=== PATIENT | male | born 1960 | race Caucasian/White ===

== ENCOUNTER → 2017-04-19 | Outpatient (CLI) | payer BC, OTHER ==
[~2017-04-19] MED LIST: AMLO5TAB2 PO; CLX20 PO; LISI40TA PO; OMEP20CA59 PO
[2017-04-19 12:24] LABS: BASO % 0.6 %; BASO ABS # 0.03 K/uL (0-0.2); COMPLETE YES; EOS % 2.4 %; HEMATOCRIT 47.2 % (42-52); IG% 0.4 %; LYMPH % 23.2 %; LYMPH ABS # 1.15 K/uL (1.2-3.4); MEAN CELL VOLUME 93.8 fL (80-100); MEAN CORPUSCULAR HGB CONC 36.2 g/dl (32-36); MEAN PLATELET VOLUME 12.2 fL (7.4-10.4); MONO % 10.5 %; NEUT % 62.9 %; PLATELET COUNT 221 K/uL (130-400); RED BLOOD COUNT 5.03 M/uL (4.7-6.1); WHITE BLOOD COUNT 4.96 K/uL (4.8-10.8)
[2017-04-19 12:54] LABS: BLOOD UREA NITROGEN 12 mg/dl (7-18); BUN/CREATININE RATIO 9.4 (10-20); CALCIUM 9.2 mg/dl (8.5-10.1); CARBON DIOXIDE 28 mmol/L (21-32); CHLORIDE 101 mmol/L (98-107); CREATININE 1.24 mg/dl (0.60-1.40); GLUCOSE 110 mg/dl (70-99); POTASSIUM 4.4 mmol/L (3.5-5.1); SODIUM 134 mmol/L (136-145)
[2017-04-19 12:55] LABS: ALT/SGPT 75 U/L (12-78); AST/SGOT 32 U/L (15-37)
[2017-04-19 12:59] LABS: ALKALINE PHOSPHATASE 99 U/L (45-117); CHOLESTEROL 254 mg/dl (0-200); HDL CHOLESTEROL 42 mg/dl; LDL CHOLESTEROL CALCULATED 154 mg/dl; PROSTATE SPECIFIC ANTIGEN 0.979 ng/ml (0.000-4.000); TRIGLYCERIDES 290 mg/dl (0-150); VERY LOW DENSITY LIPOPROT CALC 58 mg/dl
== END | disposition home or self-care (01) ==
LOC: C.LABPBG 09:25
PROVIDERS: ATTEND Internal Medicine
DX: N50.3 Cyst of epididymis (principal)

== ENCOUNTER → 2017-07-06 | Outpatient (CLI) | payer BC ==
[2017-07-06 13:13] LABS: ALBUMIN 3.9 gm/dl (3.4-5.0); ALT/SGPT 82 U/L (12-78); BLOOD UREA NITROGEN 11 mg/dl (7-18); CALCIUM 8.9 mg/dl (8.5-10.1); CARBON DIOXIDE 29 mmol/L (21-32); CHOLESTEROL 154 mg/dl (0-200); CREATININE 1.05 mg/dl (0.60-1.40); GLUCOSE 99 mg/dl (70-99); POTASSIUM 4.2 mmol/L (3.5-5.1); SODIUM 136 mmol/L (136-145)
[2017-07-06 13:16] LABS: ALKALINE PHOSPHATASE 94 U/L (45-117); AST/SGOT 35 U/L (15-37); LDL CHOLESTEROL CALCULATED 93 mg/dl; TOTAL PROTEIN 7.5 gm/dl (6.4-8.2)
== END | disposition home or self-care (01) ==
LOC: C.LABPBG 08:17
PROVIDERS: ATTEND Internal Medicine
DX: Z00.00 Encounter for general adult medical examination without abnormal findings (principal); I10 Essential (primary) hypertension; E78.5 Hyperlipidemia, unspecified

== ENCOUNTER 2017-08-24 11:15 | Emergency (ER) | payer BC ==
[~2017-08-24] VITALS: Ht 167.6 cm; Wt 81.1 kg
[2017-08-24 11:17] VITALS: TEMP 36.7; Ht 167.6 cm; Wt 81.1 kg
[2017-08-24 11:27] VITALS: O2SAT 95
[2017-08-24] MEDS ORDERED: ATOR-22 PO (11:57)
[2017-08-24] MEDS ORDERED: METOPROLOL SUCC 50MG EXT REL TAB PO STA (12:18)
[2017-08-24 12:26] LABS: BASO % 0.2 %; BASO ABS # 0.01 K/uL (0-0.2); EOS % 1.3 %; EOS ABS # 0.08 K/uL (0-0.5); HEMATOCRIT 46.8 % (42-52); HEMOGLOBIN 17.1 g/dL (14.0-18.0); IG# 0.02 K/uL (0.00-0.02); LYMPH % 18.8 %; LYMPH ABS # 1.12 K/uL (1.2-3.4); MEAN CELL VOLUME 90.9 fL (80-100); MEAN CORPUSCULAR HEMOGLOBIN 33.2 pg (25-34); MEAN CORPUSCULAR HGB CONC 36.5 g/dl (32-36); MEAN PLATELET VOLUME 12.6 fL (7.4-10.4); MONO % 8.1 %; MONO ABS # 0.48 K/uL (0.11-0.59); NEUT % 71.3 %; NEUT ABS # 4.25 K/uL (1.4-6.5); PLATELET COUNT 195 K/uL (130-400); RED CELL DISTRIBUTION WIDTH CV 12.5 % (11.5-14.5); RED CELL DISTRIBUTION WIDTH SD 41.7 fL (36.4-46.3); WHITE BLOOD COUNT 5.96 K/uL (4.8-10.8)
--- NOTE | 2017-08-24 12:30 | DIAGNOSTIC IMAGING REPORT ---
CHEST ONE VIEW PORTABLE CLINICAL HISTORY: CHEST PAIN pain COMPARISON STUDY: No previous studies for comparison. FINDINGS: The bones soft tissues and hemidiaphragms are normal. The cardiomediastinal silhouette is normal. The lungs are clear. The pulmonary vasculature is normal. IMPRESSION: Negative chest. The above report was generated using voice recognition software. It may contain grammatical, syntax or spelling errors. Electronically signed by: Peterson Amador M.D. 08/24/2017 12:29 PM Dictated Date/Time: 08/24/2017 12:29 PM
[2017-08-24 12:33] LABS: PTT PATIENT 26.3 SECONDS (21.0-31.0)
[2017-08-24 12:34] LABS: BLOOD UREA NITROGEN 14 mg/dl (7-18); CALCIUM 9.5 mg/dl (8.5-10.1); CARBON DIOXIDE 28 mmol/L (21-32); CREATININE 1.19 mg/dl (0.60-1.40); GLUCOSE 100 mg/dl (70-99); POTASSIUM 3.9 mmol/L (3.5-5.1); SODIUM 135 mmol/L (136-145)
[2017-08-24] MEDS ORDERED: APIXABAN 2.5 MG TAB PO STA (13:25)
[2017-08-24] MEDS ORDERED: METOPROLOL SUCC 25MG EXT REL TAB PO STA (13:25)
[2017-08-24] MEDS ORDERED: APIX1TAB3 PO (13:33)
[2017-08-24] MEDS ORDERED: METO25TA3 PO (13:33)
--- NOTE | 2017-08-24 13:38 | EMERGENCY ROOM VISIT NOTE ---
History Report prepared by Raghu: Guillermo Villegas Under the Supervision of: Dr. Pedro Metcalf M.D. First contact with patient: 12:04 Chief Complaint: IRREGULAR HEARTBEAT Stated Complaint: AFIB Nursing Triage Summary: Patient states began feeling fluttering in chest on Wednesday. Went to [facility] [place] and they sent him here for new onset Afib. Patient denies fluttering feeling at this time. History of Present Illness The patient is a 57 year old white male with a past medical history of HTN, HLD who presents to the ED with a cc of intermittent heart palpitations beginning one week ago. He was seen by his PCP's office today and was referred to the ED for new onset A-fib. Nothing has improved his symptoms. Negative cough, fevers, chills, chest pain, fatigue, SOB. He denies significant caffeine usage. He denies recent drug of alcohol use. No blood thinners. Source of History: patient Onset: One week ago Quality: other (heart palpitations) Timing: intermittent Modifying Factors (Relieving): other (none) Associated Symptoms: No fevers, No chills, No chest pain, No SOB, No fatigue Review of Systems See HPI for pertinent positives and negatives. A total of ten systems were reviewed and were otherwise negative. Past Medical & Surgical Medical Problems: (1) HLD (hyperlipidemia) (2) HTN (hypertension) Family History No pertinent family history stated. Social History Smoking Status: Never Smoker Alcohol Use: none Drug Use: none Marital Status: Occupation Status: employed Current/Historical Medications Scheduled Amlodipine Besylate (Norvasc), 7.5 MG PO HS Apixaban (Eliquis), 5 MG PO BID Atorvastatin (Lipitor), 20 MG PO HS Citalopram (Celexa *), 20 MG PO QAM Lisinopril (Zestril), 40 MG PO QAM Metoprolol Succ (Toprol Xl) (Toprol-Xl), 50 MG PO DAILY Omeprazole (Prilosec), 20 MG PO QAM Allergies Coded Allergies: Penicillins (Verified Allergy, Severe, HIVES, 08/24/17) Physical Exam Vital Signs Date Time Temp Pulse Resp B/P (MAP) Pulse Ox O2 Delivery O2 Flow Rate FiO2 08/24/17 13:30 87 18 130/88 95 Room Air 08/24/17 13:00 89 18 139/99 96 Room Air 08/24/17 11:39 126 08/24/17 11:30 95 Room Air 08/24/17 11:27 95 Room Air 08/24/17 11:17 36.7 86 20 122/88 98 Room Air Physical Exam GENERAL: Awake, alert, well-appearing, NAD HENT: Normocephalic, atraumatic. EYES: Normal conjunctiva. Sclera non-icteric. NECK: Supple. No nuchal rigidity. FROM. RESPIRATORY: CTAB, no rhonchi, wheezing, crackles CARDIAC: RRR, no MRG ABDOMEN: Soft, NTND, BS+ MSK: No chest wall TTP, no LE edema NEURO: GCS 15, CN 2-12 intact, moves all 4s on command SKIN: No rash or jaundice noted. Medical Decision & Procedures ER Provider Diagnostic Interpretation: Radiology results as stated below per my review and radiologist interpretation: CHEST ONE VIEW PORTABLE FINDINGS: The bones soft tissues and hemidiaphragms are normal. The cardiomediastinal silhouette is normal. The lungs are clear. The pulmonary vasculature is normal. IMPRESSION: Negative chest. The above report was generated using voice recognition software. It may contain grammatical, syntax or spelling errors. Electronically signed by: Peterson Amador M.D. 08/24/2017 12:29 PM Laboratory Results 08/24/17 11:44 Red Blood Count 5.15, Mean Corpuscular Volume 90.9, Mean Corpuscular Hemoglobin 33.2, Mean Corpuscular Hemoglobin Concent 36.5, Mean Platelet Volume 12.6, Neutrophils (%) (Auto) 71.3, Lymphocytes (%) (Auto) 18.8, Monocytes (%) (Auto) 8.1, Eosinophils (%) (Auto) 1.3, Basophils (%) (Auto) 0.2, Neutrophils # (Auto) 4.25, Lymphocytes # (Auto) 1.12, Monocytes # (Auto) 0.48, Eosinophils # (Auto) 0.08, Basophils # (Auto) 0.01 08/24/17 11:44 Test 08/24/17 11:44 White Blood Count 5.96 K/uL (4.8-10.8) Red Blood Count 5.15 M/uL (4.7-6.1) Hemoglobin 17.1 g/dL (14.0-18.0) Hematocrit 46.8 % (42-52) Mean Corpuscular Volume 90.9 fL (80-100) Mean Corpuscular Hemoglobin 33.2 pg (25-34) Mean Corpuscular Hemoglobin Concent 36.5 g/dl (32-36) Platelet Count 195 K/uL (130-400) Mean Platelet Volume 12.6 fL (7.4-10.4) Neutrophils (%) (Auto) 71.3 % Lymphocytes (%) (Auto) 18.8 % Monocytes (%) (Auto) 8.1 % Eosinophils (%) (Auto) 1.3 % Basophils (%) (Auto) 0.2 % Neutrophils # (Auto) 4.25 K/uL (1.4-6.5) Lymphocytes # (Auto) 1.12 K/uL (1.2-3.4) Monocytes # (Auto) 0.48 K/uL (0.11-0.59) Eosinophils # (Auto) 0.08 K/uL (0-0.5) Basophils # (Auto) 0.01 K/uL (0-0.2) RDW Standard Deviation 41.7 fL (36.4-46.3) RDW Coefficient of Variation 12.5 % (11.5-14.5) Immature Granulocyte % (Auto) 0.3 % Immature Granulocyte # (Auto) 0.02 K/uL (0.00-0.02) Prothrombin Time 10.5 SECONDS (9.0-12.0) Prothromb Time International Ratio 1.0 (0.9-1.1) Activated Partial Thromboplast Time 26.3 SECONDS (21.0-31.0) Partial Thromboplastin Ratio 1.0 Anion Gap 5.0 mmol/L (3-11) Est Creatinine Clear Calc Drug Dose 70.1 ml/min Estimated GFR () 79.2 Estimated GFR (Non- 68.4 BUN/Creatinine Ratio 11.6 (10-20) Calcium Level 9.5 mg/dl (8.5-10.1) Magnesium Level 2.4 mg/dl (1.8-2.4) Troponin I < 0.015 ng/ml (0-0.045) Pro-B-Type Natriuretic Peptide 46 pg/ml (0-900) Thyroid Stimulating Hormone (TSH) 1.040 uIu/ml (0.300-4.500) Laboratory results reviewed by me Medications Administered Medications (Trade) Dose Ordered Sig/Gabriella Route Start Time Stop Time Status Last Admin Dose Admin Metoprolol Succinate (Toprol Xl Tab) 25 mg NOW STAT PO 08/24/17 12:18 08/24/17 12:19 DC 08/24/17 12:34 25 MG ECG Per My Interpretation Indication: palpitations Rate (beats per minute): 79 Rhythm: normal sinus Findings: other (Normal intervals. Normal axis. No ST elevations. No PVCs. ) Change: Repeat ECG shows Atrial Fibrillation with RVR, rate of 129 bpm. Normal QRS. No ST elevations seen. Second repeat ECG shows a normal sinus rhythm with a rate of 71 bpm. Normal axis. Normal intervals. No other STS changes or TWI. ED Course 1210: The patient was evaluated in room B8. A complete history and physical exam was performed. 1340: I reevaluated the patient. Discussed results and discharge instructions: he verbalized understanding and agreement. The patient is ready for discharge. Medical Decision Nursing notes reviewed. Ancillary studies and prior records reviewed. The patient is a 57 year old white male with a past medical history of HTN, HLD who presents to the ED with a cc of intermittent heart palpitations beginning one week ago. Differential diagnosis: Etiologies such as premature contractions, electrolyte abnormality, cardiac dysrhythmia, thyroid dysfunction, pulmonary embolism, infection, gastrointestinal, as well as others were entertained. Patient was seen and evaluated the bedside. Patient has complained of some fluttering/palpitations. Patient states some ongoing intermittently 1 week. Patient denies any chest pain or shortness of breath. No infectious symptoms. No history of drug abuse, alcohol, tobacco, or stimulants or supplements. On exam the patient is well-appearing. Patient did work completed, EKGs and was given first dose of Toprol. Patient's initial EKG did show NSR. Subsequent showed A. fib with RVR. After patient's subsequent initial dose of Toprol he was normal sinus. Patient's chads 2 Vascor of 1. I discussed the patient with the on-call pesticide applicator who recommended full anti-coagulation until addition studies were completed. The patient was given first dose of apixaban. The patient was also given a subsequent dose of Toprol. Case management did help arrange follow-up for the patient. Patient was deemed suitable for outpatient follow-up and treatment at this time as the patient's blood work is fairly unremarkable and patient is otherwise fairly asymptomatic. Patient has been placed on antiplatelet medication as well as a rate control medication. Patient was told return if any worsening or persistent symptoms. Patient was given strict follow-up, discharge, and return precautions. All questions were answered. Patient was deemed suitable for outpatient follow-up at this time. Patient agreed with the plan of care and was safely discharged home. Medication Reconcilliation Current Medication List: was personally reviewed by me Blood Pressure Screening Patient's blood pressure: Normal blood pressure Blood pressure disposition: Did not require urgent referral Consults Time Called: 1320 Consulting Physician: Dr. Rubio - Cardiology Returned Call: [phone] Discussed the patient's case. Dr. Rubio recommends the patient be started on Eliquis and Toprol and discharged for outpatient follow up. Impression Primary Impression: A-fib Additional Impression: Palpitations Scribe Attestation The scribe's documentation has been prepared under my direction and personally reviewed by me in its entirety. I confirm that the note above accurately reflects all work, treatment, procedures, and medical decision making performed by me. Departure Information Dispostion Home / Self-Care Prescriptions Metoprolol Succ (Toprol Xl) (Toprol-Xl) 25 Mg Tabcr 50 MG PO DAILY for 30 Days, #60 TAB Prov: Pedro Metcalf M.D. 08/24/17 Apixaban (ELIQUIS) 5 Mg Tab 5 MG PO BID for 30 Days, #60 TAB Prov: Pedro Metcalf M.D. 08/24/17 Referrals Jonah Khanna M.D. (PCP) Patient Instructions Anticoagulants, Atrial Fibrillation [facility] [employer] Additional Instructions Please return to the emergency department if you have worsening or recurrent symptoms not amenable to at-home treatment. Please call for a follow-up appointment with her primary care physician. Please take your medications as prescribed. If you have other concerns and/or complaints please feel free to also call your primary care physician's office or return the ED for further evaluation, management, and treatment. Please follow-up with the pesticide applicator as assisted by the housing case manager. Please return if you have persistent symptoms, chest pain, shortness of breath, lower extremity swelling. Please take your blood thinning medication as prescribed. This medication will help reduce her risk of stroke. There is an increased risk of bleeding associated with taking the medication. Be advised if you do have a fall or strike your head you may consider return to the emergency department for further evaluation and treatment. You have been examined and treated today on an emergency basis only. This is not a substitute for, or an effort to provide, complete comprehensive medical care. It is impossible to recognize and treat all injuries or illnesses in a single emergency department visit. It is therefore important that you follow up closely with [facility], your PCP, and/or your specialist(s). Call as soon as possible for an appointment. Thank you for your time and consideration. I look forward to speaking with you again soon. Please don't hesitate to call us if you have any questions. Problem Qualifiers
[2017-08-24 14:30] VITALS: BP 115/88; PULSE 76; O2SAT 95
== END 2017-08-24 14:31 | disposition home or self-care (01) ==
LOC: C.EDB 11:16
DX: I48.91 Unspecified atrial fibrillation (principal); R00.2 Palpitations; I10 Essential (primary) hypertension; E78.5 Hyperlipidemia, unspecified; Z79.01 Long term (current) use of anticoagulants; Z79.899 Other long term (current) drug therapy; Z88.0 Allergy status to penicillin

== ENCOUNTER 2017-12-12 12:38 | Emergency (ER) | payer BC ==
[~2017-12-12] VITALS: Ht 167.6 cm; Wt 81.6 kg
[~2017-12-12 12:38] MED LIST changes: +ATOR-22 PO
[2017-12-12 12:39] VITALS: TEMP 36.6; Ht 167.6 cm; Wt 81.6 kg
[2017-12-12 13:12] VITALS: O2SAT 95
[2017-12-12 13:25] LABS: BASO % 0.4 %; BASO ABS # 0.02 K/uL (0-0.2); EOS % 1.6 %; EOS ABS # 0.08 K/uL (0-0.5); HEMATOCRIT 43.1 % (42-52); HEMOGLOBIN 15.4 g/dL (14.0-18.0); IG# 0.01 K/uL (0.00-0.02); LYMPH % 23.4 %; LYMPH ABS # 1.19 K/uL (1.2-3.4); MEAN CELL VOLUME 93.3 fL (80-100); MEAN CORPUSCULAR HEMOGLOBIN 33.3 pg (25-34); MEAN CORPUSCULAR HGB CONC 35.7 g/dl (32-36); MONO % 7.5 %; MONO ABS # 0.38 K/uL (0.11-0.59); NEUT % 66.9 %; PLATELET COUNT 184 K/uL (130-400); RED CELL DISTRIBUTION WIDTH CV 13.2 % (11.5-14.5); WHITE BLOOD COUNT 5.08 K/uL (4.8-10.8)
[2017-12-12 13:34] LABS: PTT PATIENT 24.4 SECONDS (21.0-31.0)
--- NOTE | 2017-12-12 13:41 | DIAGNOSTIC IMAGING REPORT ---
CHEST ONE VIEW PORTABLE CLINICAL HISTORY: Fever. Sepsis. Chest pain. COMPARISON STUDY: Chest radiograph August 24, 2017. FINDINGS: Lung volumes are normal. Lungs are clear. There is no evidence for pulmonary edema. No pneumothorax or pleural effusion is noted. Cardiac size is normal. Mediastinal contours are normal. IMPRESSION: No acute cardiopulmonary findings. Electronically signed by: Puneet Herring M.D. 12/12/2017 1:39 PM Dictated Date/Time: 12/12/2017 1:38 PM
[2017-12-12] MEDS ORDERED: OMEG10007 PO (13:43)
[2017-12-12] MEDS ORDERED: PRLSR20 PO (13:43)
[2017-12-12] MEDS ORDERED: METO25TA4 PO (13:43)
[2017-12-12] MEDS ORDERED: FLEC100T21 PO (13:43)
[2017-12-12] MEDS ORDERED: CITA20TA4 PO (13:43)
[2017-12-12 13:49] LABS: BLOOD UREA NITROGEN 14 mg/dl (7-18); CARBON DIOXIDE 25 mmol/L (21-32); CKMB < 1.0 ng/ml (0.5-3.6); CREATININE 1.25 mg/dl (0.60-1.40); GLUCOSE 142 mg/dl (70-99); LIPASE 169 U/L (73-393); POTASSIUM 3.9 mmol/L (3.5-5.1); SODIUM 134 mmol/L (136-145)
--- NOTE | 2017-12-12 15:11 | EMERGENCY ROOM VISIT NOTE ---
History First contact with patient: 12:57 Chief Complaint: CHEST PAIN Stated Complaint: CHEST PAIN Nursing Triage Summary: Pt states pressure in left side of chest since yesterday around 1100. Has been on and off since then. Initially 5/10, varies, now a /10 "it's more annoying and makes you wonder what's going on type thing" Follows w/ Dr Licea for cardiac issues, last seen about 3 weeks prior with some medication changes, is on flecainide, metoprolol, atrovastatin, omeprazole, lisinopril, citalopram. Was told he has some kind of electrial issue with his heart, unsure of specifics. Feels slightly lightheaded starting yesterday at same time. Ache down left arm. Denies trauma. History of Present Illness The patient is a 57 year old male who presents to the Emergency Room with complaints of chest discomfort. The patient states that he had it all day yesterday and part of the day today. After taking Tums on his way here, he states the symptoms resolved. The patient does have a history of some sort of dysrhythmia. He states that it is not atrial fibrillation and he is seeing Dr. Cordova for this. He is currently on flecainide but is not on anticoagulation. The patient denies any associated symptoms such as shortness of breath. He has not had any fevers or upper respiratory illness. He denies any worsening with exertion. He is currently not having symptoms. Review of Systems As above otherwise negative for 10 systems Past Medical/Surgical History Medical Problems: (1) HLD (hyperlipidemia) (2) HTN (hypertension) Social History Smoking Status: Never Smoker Alcohol Use: none Drug Use: none Marital Status: Occupation Status: employed Current/Historical Medications Scheduled Atorvastatin (Lipitor), 20 MG PO HS Citalopram Hydrobromide (Citalopram Hydrobromide), 10 MG PO DAILY Fish Oil ([place]-3), 1 CAP PO DAILY Flecainide (Tambocor), 100 MG PO BID Lisinopril (Zestril), 40 MG PO QAM Metoprolol Succinate (Toprol Xl), 25 MG PO QPM Omeprazole (Prilosec), 20 MG PO DAILY Physical Exam Vital Signs Date Time Temp Pulse Resp B/P (MAP) Pulse Ox O2 Delivery O2 Flow Rate FiO2 8/12/18 14:01 119/76 12/12/17 13:57 72 27 94 Room Air 12/12/17 13:12 95 Room Air 12/12/17 12:57 76 19 94 12/12/17 12:55 77 17 123/75 95 Room Air 12/12/17 12:54 80 12/12/17 12:50 94 Room Air 12/12/17 12:39 36.6 84 18 135/85 95 Room Air Physical Exam CONSTITUTIONAL/VITAL SIGNS: Reviewed / noted above. GENERAL: Non-toxic in appearance. INTEGUMENTARY: Warm, dry, and Kiana. HEAD: Normocephalic. EYES: without scleral icterus or trauma. ENT/OROPHARYNX: clear and moist. LYMPHADENOPATHY/NECK: Is supple without lymphadenopathy or meningismus. RESPIRATORY: Lungs clear and equal. CARDIOVASCULAR: Regular rate and rhythm. GI/ABDOMEN: Soft and nontender. No organomegaly or pulsatile mass. No rebound or guarding. Normal bowel sounds. EXTREMITIES: Warm and well perfused. BACK: No CVA tenderness. NEUROLOGICAL: Intact without focal deficits. PSYCHIATRIC: normal affect. MUSCULOSKELETAL: Normally developed with good muscle tone. TRIAGE NURSING DOCUMENTATION REVIEWED. Medical Decision & Procedures ER Provider Diagnostic Interpretation: Chest x-ray: Per the radiologist there is no acute disease. Laboratory Results 12/12/17 13:10 Red Blood Count 4.62, Mean Corpuscular Volume 93.3, Mean Corpuscular Hemoglobin 33.3, Mean Corpuscular Hemoglobin Concent 35.7, Mean Platelet Volume 12.0, Neutrophils (%) (Auto) 66.9, Lymphocytes (%) (Auto) 23.4, Monocytes (%) (Auto) 7.5, Eosinophils (%) (Auto) 1.6, Basophils (%) (Auto) 0.4, Neutrophils # (Auto) 3.40, Lymphocytes # (Auto) 1.19, Monocytes # (Auto) 0.38, Eosinophils # (Auto) 0.08, Basophils # (Auto) 0.02 12/12/17 13:10 Test 12/12/17 13:10 12/12/17 13:35 White Blood Count 5.08 K/uL (4.8-10.8) Red Blood Count 4.62 M/uL (4.7-6.1) Hemoglobin 15.4 g/dL (14.0-18.0) Hematocrit 43.1 % (42-52) Mean Corpuscular Volume 93.3 fL (80-100) Mean Corpuscular Hemoglobin 33.3 pg (25-34) Mean Corpuscular Hemoglobin Concent 35.7 g/dl (32-36) Platelet Count 184 K/uL (130-400) Mean Platelet Volume 12.0 fL (7.4-10.4) Neutrophils (%) (Auto) 66.9 % Lymphocytes (%) (Auto) 23.4 % Monocytes (%) (Auto) 7.5 % Eosinophils (%) (Auto) 1.6 % Basophils (%) (Auto) 0.4 % Neutrophils # (Auto) 3.40 K/uL (1.4-6.5) Lymphocytes # (Auto) 1.19 K/uL (1.2-3.4) Monocytes # (Auto) 0.38 K/uL (0.11-0.59) Eosinophils # (Auto) 0.08 K/uL (0-0.5) Basophils # (Auto) 0.02 K/uL (0-0.2) RDW Standard Deviation 45.0 fL (36.4-46.3) RDW Coefficient of Variation 13.2 % (11.5-14.5) Immature Granulocyte % (Auto) 0.2 % Immature Granulocyte # (Auto) 0.01 K/uL (0.00-0.02) Prothrombin Time 10.3 SECONDS (9.0-12.0) Prothromb Time International Ratio 1.0 (0.9-1.1) Activated Partial Thromboplast Time 24.4 SECONDS (21.0-31.0) Partial Thromboplastin Ratio 0.9 Anion Gap 9.0 mmol/L (3-11) Est Creatinine Clear Calc Drug Dose 67.0 ml/min Estimated GFR () 74.7 Estimated GFR (Non- 64.4 BUN/Creatinine Ratio 11.3 (10-20) Calcium Level 9.0 mg/dl (8.5-10.1) Total Creatine Kinase 82 U/L (39-308) Creatine Kinase MB < 1.0 ng/ml (0.5-3.6) Creatine Kinase MB Ratio (0-3.0) Troponin I < 0.015 ng/ml (0-0.045) Lipase 169 U/L (73-393) Urine Color YELLOW Urine Appearance CLEAR (CLEAR) Urine pH 5.0 (4.5-7.5) Urine Specific Dike 1.011 (1.000-1.030) Urine Protein NEG (NEG) Urine Glucose (UA) NEG (NEG) Urine Ketones NEG (NEG) Urine Occult Blood NEG (NEG) Urine Nitrite NEG (NEG) Urine Bilirubin NEG (NEG) Urine Urobilinogen NEG (NEG) Urine Leukocyte Esterase NEG (NEG) ECG Per My Interpretation Indication: chest pain Rate (beats per minute): 74 Rhythm: normal sinus Findings: no acute ischemic change, no ectopy ED Course The patient was evaluated. He was told the results. Medical Decision The patient presents with some chest pain there is not worsened with exertion. Test results are normal. Exam was normal. Patient was told the results. 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 Medication Reconcilliation Current Medication List: was personally reviewed by me Blood Pressure Screening Patient's blood pressure: Normal blood pressure Blood pressure disposition: Did not require urgent referral Impression Primary Impression: Substernal precordial chest pain Departure Information Dispostion Home / Self-Care Referrals Jonah Khanna M.D. (PCP) Forms Call Back Authorization, HOME CARE DOCUMENTATION FORM, IMPORTANT VISIT INFORMATION Patient Instructions Chest Pain - [facility], [facility] Additional Instructions Follow-up with your doctor for further care and evaluation in 1-2 days. Return to the emergency department for worsening or new symptoms or any concerns. You have been examined and treated today on an emergency basis only. This is not a substitute for, or an effort to provide, complete comprehensive medical care. It is impossible to recognize and treat all injuries or illnesses in a single emergency department visit. It is therefore important that you follow up closely with your doctor. Call as soon as possible for an appointment.
[2017-12-12 15:20] VITALS: BP 123/76; PULSE 68; O2SAT 95
== END 2017-12-12 15:26 | disposition home or self-care (01) ==
LOC: C.EDB 12:38 → C.EDC 15:26
DX: R07.2 Precordial pain (principal); Z79.899 Other long term (current) drug therapy; E78.5 Hyperlipidemia, unspecified; I10 Essential (primary) hypertension

== ENCOUNTER 2019-08-20 21:21 | Observation (INO) ==
[2019-08-20] MEDS ORDERED: SODIUM CHLORIDE 0.9% 1000ML 1,000 ML IV SCH (21:45)
[2019-08-20 21:54] LABS: Basophils # (auto) 0.01 K/uL (0-0.2); Basophils % (auto) 0.2 %; Eosinophils % (auto) 1.6 %; Hematocrit (blood only) 39.1 % (42-52); Hemoglobin 13.7 g/dL (14.0-18.0); Immature Granulocytes # (auto) 0.01 K/uL (0.00-0.02); Immature Granulocytes % (auto) 0.2 %; Lymphocytes % (auto) 38.2 %; Mean Corpuscular Hemoglobin 31.6 pg (25-34); Mean Corpuscular Volume 90.3 fL (80-100); Mean Platelet Volume 11.6 fL (7.4-10.4); Monocytes # (auto) 0.53 K/uL (0.11-0.59); Monocytes % (auto) 8.4 %; Neutrophils # (auto) 3.24 K/uL (1.4-6.5); Neutrophils % (auto) 51.4 %; Platelet Count 209 K/uL (130-400); RDW Coefficient of Variation 12.7 % (11.5-14.5); RDW Standard Deviation 41.9 fL (36.4-46.3); Red Blood Count 4.33 M/uL (4.7-6.1); White Blood Count 6.29 K/uL (4.8-10.8)
[2019-08-20 22:02] LABS: Alanine Aminotransferase 62 U/L (12-78); Albumin Level 3.5 gm/dl (3.4-5.0); Aspartate Aminotransferase 33 U/L (15-37); BUN Creatinine Ratio 13.4 (10-20); Blood Urea Nitrogen 23 mg/dl (7-18); Calcium 8.7 mg/dl (8.5-10.1); Carbon Dioxide 26 mmol/L (21-32); Chloride 99 mmol/L (98-107); Creatinine Clr Calc Pharmacy 48.9 ml/min; Est GFR (African American) 51.5; Est GFR (Non-African American) 44.4; Glucose 104 mg/dl (70-99); Magnesium 1.7 mg/dl (1.8-2.4); Potassium 3.5 mmol/L (3.5-5.1); Sodium 134 mmol/L (136-145)
[2019-08-20 22:05] LABS: Prothrombin Time 10.7 Seconds (9.0-12.0)
--- NOTE | 2019-08-20 22:07 | XRay Report ---
XR chest 1V portable HISTORY: 59 years-old Male weakness acute syncope with weakness COMPARISON: Chest radiograph 12/12/2017 TECHNIQUE: Portable AP view of the chest FINDINGS: Cardiac silhouette is upper limits of normal in size. No pneumothorax, pleural effusion, airspace con solidation or overt pulmonary edema. Bones of the chest appear grossly intact. IMPRESSION: No acute process. ACT 112: Negative or not required by law. The above report was generated using voice recognition software. It may contain grammatical, syntax o r spelling errors. Electronically signed by: Parker Jimenez M.D. 08/20/2019 10:06 PM
--- NOTE | 2019-08-20 22:08 | Emergency Department Note ---
Impression & Plan Syncope, Dehydration, Hypocalcemia, Alcohol use, Closed head injury ED Provider Note NAME: LEEANN BROWNE AGE: 59 SEX: M : 1960 ARRIVES VIA: Ambulance INFORMANT: Patient, ED PROVIDER(S): Pedro Metcalf MD Chief Complaint: Syncope, head injury HPI: Patient does present with concern for syncope. This occurred approximate 45 minutes prior to arrival. The patient states that he did get lightheaded and subsequently struck the right side of his forehead. The patient does not take blood thinning medications. Patient states that currently he is asymptomatic. The patient denies any chest pains or shortness of breath. Patient denies any recent medication changes. Patient states his appetite is been good. No palpitations. Patient states that his symptoms have improved. Patient currently does not complain of headache and no pain medication was taken prior to arrival. Patient does see Dr. Licea with not any cardiology. He does take flecainide and metoprolol. Patient states he is taking these regularly. ROS: See HPI for pertinent positives and negatives. A total of 10 systems were revie wed and otherwise negative. Past medical history: See below Surgical history: See below Social history: See below Physical Exam: GENERAL: Well appearing, well nourished, NAD, non-toxic. Wearing a mask. Head: Small abrasion to the right forehead without obvious deformity. EYE EXAM: Normal conjunctiva. PERRL, no anisocoria and EOM's grossly intact w/o pain. OROPHARYNX: Moist mucus membranes. Grossly normal dentition. NECK: Supple, no nuchal rigidity, no adenopathy, non-tender. No signs of m eningismus. LUNGS: Clear to auscultation. Normal chest wall mechanics. HEART: NSR, no MRG. ABDOMEN: Abdomen soft, non-tender, normo-active bowel sounds, no masses, no rebound or guarding. BACK: No CVA TTP. SKIN: No rashes and no bruising. UPPER EXTREMITIES: Upper extremities are grossly normal. LOWER EXTREMITIES: Grossly normal, no edema. Negative Homans sign bilaterally. NEURO EXAM: A&O x3, cranial nerves II-XII grossly intact, normal speech, moves all 4 extremities on command w/o issue. Differential diagnoses: Vasovagal event, dehydration, infection, hypoglycemia, electrolyte abnormalities, cardiac sources, intracerebral event, pulmonary embolism, seizure, toxicologic, neurologic, as well as other pathologies. Course: Patient was seen and evaluated at the bedside. A full history and physical exam was performed. EKG: Location: Syncope Sinus with first-degree block, rate of 76, prolonged NC, normal QRS interval, normal axis, T wave inversion anteriorly and laterally. No ST changes. T wave inversions appear to be old. The patient's NC intervals slightly more prolonged compared to prior. Prior comparison EKG was April 06, 2019. Imaging Studies: Radiology results as stated below per my review in the radiologist's interpretation: CT head/brain wo con CLINICAL HISTORY: 59 years-old Male with fall, struck R side of forehead, LOC. Acute head injury status post fall TECHNIQUE: Multiple axial CT images of the head were obtained without contrast. A dose lowering technique was utilized adhering to the principles of ALARA. CT DOSE: 545.86 mGycm COMPARISON: None. FINDINGS: No acute intracranial hemorrhage, midline shift, intracranial mass, hydrocephalus, territorial ischemia or abnormal extra-axial collection. The calvarium is intact. The paranasal sinuses, mastoid air cells, and middle ear cavities are clear. IMPRESSION: No acute intracranial abnormality or calvarial fracture. ACT 112: Negative or not required by law. The above report was generated using voice recognition software. It may contain grammatical, syntax or spelling errors. Electronically signed by: Parker Jimenez M.D. 08/20/2019 10:25 PM Dictated: 08/20/192220 Transcribed: 08/20/192220 XR chest 1V portable HISTORY: 59 years-old Male weakness acute syncope with weakness COMPARISON: Chest radiograph 12/12/2017 TECHNIQUE: Portable AP view of the chest FINDINGS: Cardiac silhouette is upper limits of normal in size. No pneumothorax, pleural effusion, airspace consolidation or overt pulmonary edema. Bones of the chest appear grossly intact. IMPRESSION: No acute process. ACT 112: Negative or not required by law. The above report was generated using voice recognition software. It may contain grammatical, syntax or spelling errors. Electronically signed by: Parker Jimenez M.D. 08/20/2019 10:06 PM Dictated: 08/20/192204 Transcribed: 08/20/192204 Cardiac monitoring: An order was placed for continuous cardiac monitoring. The monitor shows a rate of 78 with sinus rhythm. MDM: Patient was seen and evaluated at the bedside. The patient did present status post syncope and striking right forehead. The patient did have blood work completed along with an EKG troponin chest x-ray and CT of the head. The patient is currently asymptomatic and has a nonfocal neurologic exam. No coronavirus contacts travel or coronavirus concerns at this time. Patient's blood work shows very mild anemia with a normal white count and platelet count. The patient does have very mild change in kidney function but the patient did receive IV fluids. Magnesium is slightly low. Magnesium and potassium were ordered for repleted given the patient's known history of arrhythmia on flecainide. Chest x-ray and CT of the head were unremarkable. Given the concern for the flecainide as well as the patient's syncopal event even in light to whether or not this might of been somewhat positional as the patient did relate that he had gotten up from bed I will think it would be unreasonable for telemetry and observation. He is agreeable to this. I did speak the on-call hospitalist Dr. Desir who agreed to further evaluate and treat the patient. I did order the patient's evening medications. Also of note the patient did disclose that he does drink about 512 ounce beers daily. I did recommend that he should limit this to 2 in total per day is the maximum recommended daily allowance for men. Patient is not clinically intoxicated at this time Past Med/Surg History Medical History GERD (gastroesophageal reflux disease) (Inactive) Gout (Inactive) HLD (hyperlipidemia) (Inactive) HTN (hypertension) (Inactive) Multifocal atrial tachycardia (Inactive) Surgical History History of colonoscopy History of wisdom tooth extraction Status post LASIK surgery of both eyes Family History Mother Family history of reaction to anesthesia nausea/vomiting Father Prostate cancer Diabetes Hx of CABG Ischemic heart disease Uncle Colorectal cancer Brother Hypertension Denies family history of Ovarian cancer Breast cancer Lung cancer Social History Preferred Language: Syriac Communication Ability: Effective Visual Impairment: No Limitations Hearing Ability: Normal [employer] Required: No Beliefs That Will Affect Care: None Current Living Situation: Spouse Feels Safe at Home: Yes Smoking Status: Never smoker Tobacco Type: smokeless tobacco ; Second Hand Exposure: No ; Hx Alcohol Use: Yes Alcohol type: beer Hx Substance Use: No Childhood Exposure to Second-Hand Smoke: No Diet Comment: regular caffeine: Yes during the past year weight has: remained stable Dental Care, Regularly: Yes Physical Activity Frequency: Daily Seatbelt Use: always Sunscreen Use: Yes Allergies Allergies Allergy/AdvReac Type Severity Reaction Status Date / Time Penicillins Allergy Severe Hives Verified 08/20/19 22:09 sulfamethoxazole Allergy Severe Fever, Verified 08/20/19 22:09 [From Bactrim] elevated LFT trimethoprim [From Bactrim] Allergy Severe Fever, Verified 08/20/19 22:09 elevated LFT Home Meds Home Medications Medication Instructions Recorded Confirmed indomethacin 25 mg PO TID PRN 06/24/18 08/20/19 lorazepam 0.5 mg PO DAILY PRN 06/24/18 08/20/19 metoprolol succinate 25 mg PO HS 06/24/18 08/20/19 omeprazole 20 mg PO QAM 06/24/18 08/20/19 atorvastatin 20 mg PO HS 04/06/19 08/20/19 lisinopril 40 mg PO QAM 04/06/19 08/20/19 Previous Rx's Medication Instructions Recorded citalopram 10 mg tablet 10 mg PO QAM #90 tab 10/17/18 flecainide 100 mg tablet 100 mg PO Q12H #180 tab 08/18/19 Results & Data (ED) Vital Signs Vital Signs - 24 hr 08/20/19 21:35 08/20/19 21:40 08/20/19 22:05 Temperature 36.7 C Temperature Source Oral Pulse Rate - Lying 77 Pulse Rate - Standing 77 Pulse Rate 78 Pulse Rate [Right Finger] 76 Pulse Rhythm Regular Pulse Strength Normal Respiratory Rate 19 19 Respiratory Effort / Characteristics Non-Labored Respiratory Depth Normal Respiratory Pattern Regular Blood Pressure - Lying 128/68 Blood Pressure- Standing 119/80 Blood Pressure 123/69 Blood Pressure [Right Arm] 123/76 Blood Pressure Mean 87 Blood Pressure Mean [Right Arm] 91 Blood Pressure Position Lying Pulse Oximetry 95 95 Oxygen Delivery Method Room Air Sepsis Recent Fever Within 48 Hours No Sepsis Action Taken by Nursing No Action Required Home Medications Current Medication List: was personally reviewed by me Laboratory Data Attestation: I reviewed the patient's lab results. Result diagrams: 08/20/19 21:12 08/20/19 21:12 Lab Results 08/20/19 08/20/19 08/20/19 Range/Units 21:12 21:12 21:12 WBC 6.29 (4.8-10.8) K/uL RBC 4.33 L (4.7-6.1) M/uL Hgb 13.7 L (14.0-18.0) g/dL Hct 39.1 L (42-52) % MCV 90.3 (80-100) fL MCH 31.6 (25-34) pg MCHC 35.0 (32-36) g/dL RDW Std Deviation 41.9 (36.4-46.3) fL RDW Coeff of Jennifer 12.7 (11.5-14.5) % Plt Count 209 (130-400) K/uL MPV 11.6 H (7.4-10.4) fL Immature Gran % (Auto) 0.2 % Neut % (Auto) 51.4 % Lymph % (Auto) 38.2 % [place] % (Auto) 8.4 % Eos % (Auto) 1.6 % Baso % (Auto) 0.2 % Immature Gran # (Auto) 0.01 (0.00-0.02) K/uL Neut # (Auto) 3.24 (1.4-6.5) K/uL Lymph # (Auto) 2.40 (1.2-3.4) K/uL [place] # (Auto) 0.53 (0.11-0.59) K/uL Eos # (Auto) 0.10 (0-0.5) K/uL Baso # (Auto) 0.01 (0-0.2) K/uL PT 10.7 (9.0-12.0) Seconds INR 1.0 (0.9-1.1) Sodium 134 L (136-145) mmol/L Potassium 3.5 (3.5-5.1) mmol/L Chloride 99 (98-107) mmol/L Carbon Dioxide 26 (21-32) mmol/L Anion Gap 9.0 (3-11) BUN 23 H (7-18) mg/dl Creatinine 1.68 H (0.6-1.4) mg/dl Est Cr Clr Drug Dosing 48.9 ml/min Est GFR ( Amer) 51.5 Est GFR (Non-Af Amer) 44.4 BUN/Creatinine Ratio 13.4 (10-20) Glucose 104 H (70-99) mg/dl Calcium 8.7 (8.5-10.1) mg/dl Magnesium 1.7 L (1.8-2.4) mg/dl Total Bilirubin 0.2 (0.2-1) mg/dl AST 33 (15-37) U/L ALT 62 (12-78) U/L Alkaline Phosphatase 95 (45-117) U/L Troponin I < 0.015 (0-0.045) ng/ml Total Protein 7.0 (6.4-8.2) gm/dl Albumin 3.5 (3.4-5.0) gm/dl Globulin 3.5 (2.5-4.0) gm/dl Albumin/Globulin Ratio 1.0 (0.9-2) TSH 2.670 (0.300-4.500) uIu/ml Administered Medications Discontinued Medications Sodium Chloride (Nss 1000ml) 1,000 mls @ 999 mls/hr IV .Q1H1M ROEL Stop: 08/20/19 22:45 Last Infusion: 08/20/19 22:39 Dose: 0 mls/hr Documented by: [id number] Admin: 08/20/19 21:49 Dose: 999 mls/hr Documented by: [id number] Magnesium Oxide (Mag-Ox) 800 mg PO NOW STA Stop: 08/20/19 22:23 Last Admin: 08/20/19 22:29 Dose: 800 mg Documented by: [id number] Potassium Chloride (Klor-Con M20) 40 meq PO NOW STA Stop: 08/20/19 22:23 Last Admin: 08/20/19 22:29 Dose: 40 meq Documented by: [id number] Blood Pressure Blood Pressure Findings: Normal blood pressure Blood Pressure Disposition: did not require urgent referral Discharge Plan Visit Data Chief Complaint: Syncope Stated Complaint: SYNCOPE ED Provider: Pedro Metcalf Discharge Problem: Syncope, Dehydration, Hypocalcemia, Alcohol use, Closed head injury Forms Stand Alone Forms: [facility] Prescriptions Prescriptions: No Action citalopram 10 mg tablet 10 mg PO QAM Qty: 90 RF: 3 flecainide 100 mg tablet 100 mg PO Q12H Qty: 180 RF: 3 atorvastatin 20 mg tablet 20 mg PO HS RF: 0 lisinopril 40 mg tablet 40 mg PO QAM RF: 0 lorazepam 0.5 mg Tablet 0.5 mg PO DAILY PRN (Reason: Anxiety) RF: 0 indomethacin 25 mg Capsule 25 mg PO TID PRN (Reason: Gout Flare Up) RF: 0 metoprolol succinate 25 mg Tablet Extended Release 24 Hr 25 mg PO HS RF: 0 omeprazole 20 mg Tablet,Delayed Release (Dr/Ec) 20 mg PO QAM RF: 0 Discharge Problem: Syncope Qualifiers: Syncope type: unspecified Qualified Code(s): R55 - Syncope and collapse Closed head injury Qualifiers: Encounter type: initial encounter Qualified Code(s): S09.90XA - Unspecified injury of head, initial encounter
[2019-08-20 22:13] LABS: Alkaline Phosphatase 95 U/L (45-117); Bilirubin,Total 0.2 mg/dl (0.2-1); Globulin 3.5 gm/dl (2.5-4.0); Troponin I < 0.015 ng/ml (0-0.045)
[2019-08-20] MEDS ORDERED: POTASSIUM CHLORIDE 20 MEQ TABCR PO STA (22:22)
[2019-08-20] MEDS ORDERED: MAGNESIUM OXIDE 400 MG TAB PO STA (22:22)
--- NOTE | 2019-08-20 22:26 | CT Scan Report ---
CT head/brain wo con CLINICAL HISTORY: 59 years-old Male with fall, struck R side of forehead, LOC. Acute head injury sta tus post fall TECHNIQUE: Multiple axial CT images of the head were obtained without contrast. A dose lowering tech nique was utilized adhering to the principles of ALARA. CT DOSE: 545.86 mGycm COMPARISON: None. FINDINGS: No acute intracranial hemorrhage, midline shift, intracranial mass, hydrocephalus, territorial ischem ia or abnormal extra-axial collection. The calvarium is intact. The paranasal sinuses, mastoid air cells, and middle ear cavities are clear . IMPRESSION: No acute intracranial abnormality or calvarial fracture. ACT 112: Negative or not required by law. The above report was generated using voice recognition software. It may contain grammatical, syntax o r spelling errors. Electronically signed by: Parker Jimenez M.D. 08/20/2019 10:25 PM
[2019-08-20] MEDS ORDERED: FLECAINIDE ACETATE 100 MG TABLET PO STA (22:57)
[2019-08-20] MEDS ORDERED: METOPROLOL SUCC 50MG EXT REL TAB PO STA (22:57)
[2019-08-20] MEDS ORDERED: ATORVASTATIN 20 MG TAB PO STA (22:57)
--- NOTE | 2019-08-20 23:44 | History & Physical Report ---
Date of Service August 20, 2019 Assessment & Plan (1) Syncope: Hilton is a 59-year-old male with a past medical history of irregular heartbeat, colon adenoma, and anxiety who presents with an episode of syncope. Syncope 2 episodes of syncope within approximately 1 minute after standing to use the restroom.He has a history of orthostasis on flecainide and metoprolol, and reports that he had several beers and was thirsty working in the yard prior to this episode. No chest pain, chest pressure, palpitations or other cardiac symptoms prior to or after episode EKG normal sinus rhythm, troponin negative on admission Vital signs normal on admission, orthostatics pending Suspect patient had an episode of orthostatic syncope worsened by dehydration, will observe on telemetry overnight per shared decision making with patient between patient and emergency department physician No carotid bruits on exam, defer carotid Doppler at this time No focal neurologic deficits PHILIPPE, stage I Creatinine increased from baseline of 1.01.29-1.68 on admission Suspect PHILIPPE versus prerenal azotemia Received 1 L fluid bolus in ED, continue to encourage oral intake and fluids as below BMP in the morning Hold lisinopril Arrhythmia Not a flutter or A. fib per patient, does not require anticoagulation per patient. Completely resolved with flecainide treatment Continue flecainide and metoprolol, consider follow-up with cardiology for potential dose reduction if patient continues to have syncopal or orthostatic symptoms Hypertension/HLD Hold lisinopril for PHILIPPE Continue atorvastatin Anxiety Continue citalopram 10 mg daily DVT prophylaxis: SCDs Diet: Heart healthy CODE STATUS: Full Disposition: Med/Tele Patient low risk for COVID. Patient without respiratory symptoms, afebrile, without contact with COVID positive patient's or recent travel. (2) Alcohol use: (3) Closed head injury: (4) PHILIPPE (acute kidney injury): History of Present Illness Chief Complaint: Syncope Primary Care Provider: Jonah Khanna MD Hilton is a 59-year-old male with a past medical history of irregular heartbeat, colon adenoma, and anxiety who presents with an episode of syncope. Hilton reports he was at home in his otherwise normal state of health when he was fatigued after working on putting any heat pump in the house and laid down at around 8 PM to take a nap. He reports he woke up and stood up to go to the bathroom, walked about 20 steps, and then felt lightheaded and dizzy and fell and hit his head on a rail in the bathroom. His heard him and came to assist him, he reports he stood up and then again became very lightheaded and slumped on his who lowered him to the ground and called 911. He reports that he was not out for very long but does not remember falling either time. After the second time he was able to get up and went to lie down in bed and his symptoms resolved. He reports that after laying down in bed he had a short episode of cold sweats, and then was in his normal state of health by the time EMS arrived. He reports he has had intermittent episodes of lightheadedness when standing in the past for which she has had his flecainide and metoprolol adjusted by his outpatient otr flatbed driver. he is followed by Dr. Licea. He is on flecainide and metoprolol for a heartbeat irregularity which he reports is not A. fib or a flutter and does not require anticoagulation, and which has been completely resolved with flecainide and metoprolol. He reports that he has a 6 beer per day intake about 4 to 5 days/week, and notes that while he had had several beers the day of his symptoms he was not drunk at the time of his fall. He reports that he has noticed his tongue was dry and he has been thirsty in the evening. He denies preceding chest pain, chest pressure, palpitations, shortness of breath, fever, chills, sweats, urinary changes, focal neurologic symptoms, vision change, and weakness. Past medical history: Reviewed, see EMR Past surgical history: Reviewed in EMR Medications: Reviewed with patient, updated in EMR. Patient has not taken his medications yet tonight, but was scheduled to get them by ED provider Medication allergies: Hives to penicillin, reaction to Bactrim Social: Denies tobacco use, denies recreational drug use. Alcohol consumption as noted in HPI. He lives at home with his who would be his surrogate decision maker if needed. CODE STATUS: Full code Allergies Allergy/AdvReac Type Severity Reaction Status Date / Time Penicillins Allergy Severe Hives Verified 08/20/19 22:09 sulfamethoxazole Allergy Severe Fever, Verified 08/20/19 22:09 [From Bactrim] elevated LFT trimethoprim [From Bactrim] Allergy Severe Fever, Verified 08/20/19 22:09 elevated LFT Home Medications Home Medications Medication Instructions Recorded Confirmed Type indomethacin 25 mg PO TID PRN 06/24/18 08/20/19 History lorazepam 0.5 mg PO DAILY PRN 06/24/18 08/20/19 History metoprolol succinate 25 mg PO HS 06/24/18 08/20/19 History omeprazole 20 mg PO QAM 06/24/18 08/20/19 History citalopram 10 mg tablet 10 mg PO QAM #90 tab 10/17/18 08/20/19 Rx atorvastatin 20 mg PO HS 04/06/19 08/20/19 History lisinopril 40 mg PO QAM 04/06/19 08/20/19 History flecainide 100 mg tablet 100 mg PO Q12H #180 tab 08/18/19 08/20/19 Rx Past Med/Surg History Medical History GERD (gastroesophageal reflux disease) (Inactive) Gout (Inactive) HLD (hyperlipidemia) (Inactive) HTN (hypertension) (Inactive) Multifocal atrial tachycardia (Inactive) Surgical History History of colonoscopy History of wisdom tooth extraction Status post LASIK surgery of both eyes Family History Mother Family history of reaction to anesthesia nausea/vomiting Father Prostate cancer Diabetes Hx of CABG Ischemic heart disease Uncle Colorectal cancer Brother Hypertension Denies family history of Ovarian cancer Breast cancer Lung cancer Social History Preferred Language: Greek Communication Ability: Effective Visual Impairment: No Limitations Hearing Ability: Normal Clam Shucker Required: No Beliefs That Will Affect Care: None Current Living Situation: Spouse Feels Safe at Home: Yes Smoking Status: Never smoker Tobacco Type: smokeless tobacco ; Second Hand Exposure: No ; Hx Alcohol Use: Yes Alcohol type: beer Hx Substance Use: No Childhood Exposure to Second-Hand Smoke: No Diet Comment: regular caffeine: Yes during the past year weight has: remained stable Dental Care, Regularly: Yes Physical Activity Frequency: Daily Seatbelt Use: always Sunscreen Use: Yes Review of Systems Review of Systems: Constitutional: Denies fever, chills, malaise Eyes: Denies double vision, vision change, eye pain ENT: Denies ear pain, sore throat Cardiovascular: Denies Chest pain, chest pressure, palpitations, extremity swelling Respiratory: Denies shortness of breath, cough, sputum production, difficulty breathing Gastrointestinal: Denies abdominal pain, nausea, vomiting, constipation, diarrhea Genitourinary: Denies pain with urination, urinary urgency, urinary frequency Musculoskeletal: Denies weakness, muscle aches/pain, joint aches/pain Integumentary:Denies rash, lesions, bruising Neurological: Denies numbness, tingling, focal weakness. Endorses syncope as noted in HPI Physical Exam Physical Exam: General: A&Ox3. NAD. Cooperative. HEENT: Small abrasion with swelling at right forehead. Otherwise normocephalic. External ear and nasal anatomy intact. Pupils equal and reactive to light and accommodation. No cervical lymphadenopathy. No carotid bruits appreciated. Neck flexion/extension/rotation/lateral bending intact without pain or stiffness. Pulm: CTAB A&P. -wheezes, -rales, -rhonchi. Symmetrical chest rise. No increase work of breathing. No respiratory distress. Cardiac: RRR, -mrg. Radial pulses intact and symmetrical. Abdominal: Nontender, nondistended, soft. BS present. CN II: Visual bhatti are full to confrontation. Pupils are equal and react to light and accomidation. Visual acuity grossly intact. CN III, IV, : At primary gaze, there is no eye deviation. EoM intact without nystagmus. No visual field cuts. CN V: Facial sensation is intact to soft touch in all 3 divisions bilaterally. CN VII: No facial asymmetry CN VII: Hearing is grossly intact. CN IX, X: Palate elevates symmetrically. Phonation is normal without dysarthria. CN XI: Head turning and shoulder shrug are intact Sensory: Light touch, pinprick intact in upper and low extremities without deficit or asymmetry. Strength: RUE: Shoulder flexion/extension/internal rotation/external rotation, elbow flexion/extension, finger flexion/extension, hot top liner helper strength, interosseous 5/5 LUE: Shoulder flexion/extension/internal rotation/external rotation, elbow flexion/extension, finger flexion/extension, hot top liner helper strength, interosseous 5/5 RLE: Hip flexion, knee flexion/extension, ankle plantar flexion/dorsiflexion 5/5 LLE: Hip flexion, knee flexion/extension, ankle plantar flexion/dorsiflexion 5/5 Results & Data Results & Data ([facility]) Vital Signs (Past 12 Hours) Vital Signs Temp Pulse Pulse Resp BP BP Pulse Ox 08/20/19 22:05 76 19 123/76 95 08/20/19 21:35 36.7 C 78 19 123/69 95 Supervising Physician Co-Signing Physician Notes Patient seen and examined, chart reviewed, case discussed with Dr. Bess and I agree with his assessment and plan as documented above. Briefly, patient is a 59yo C male with history of GERD/HTN/HLP, atrial arrhythmia, presumed MFAT on Metoprolol and Flecainide presenting with lightheadedness and syncope x 2 at home. Events occurred after getting up from a laying position. Patient hit his head on the shower door. Patient denies chest pain, palpitations, SOB. Denies incontinence, seizure activity. No additional complaints at this time On exam he is afebrile, HD stable, NAD, resting comfortably in bed Skin - warm, dry, small abrasion on forehead, no active bleeding HEENT - abrasion on forehead, PERRL, EOMI, dry, neck supple Heart = +S1/S2, regular, no m/r/g Lung s- CTA Abd - +BS, soft, NT/ND Ext - No edema Neuro - intact, no focal deficits, strength 5/5 Labs and images reviewed. Significant for elevated BUN and Cr of 23 and 1.68 (from 15 and 1.29, respectively), Mg=1/7/ Trop = negative, EKG with NSR, no conduction abnormalities/blocks, no evidence of ischemia CT Head unremarkable Assessment/Plan - 59yo C male presenting with syncope x 2, PHILIPPE. Suspect orthostatic syncope, mild dehydration + medication effects. No concerning findings on EKG -Observation to medical floor with telemetry monitoring -Check orthostatic VS -IVF, avoid nephrotoxins -Repeat labs in AM -Remainder of plan as above Resident Activity Tracking Resident Involvement: Resident Care Provided Care Provided: Adult Hospital Medicine (1) Closed head injury Encounter type: initial encounter Qualified Code(s): S09.90XA - Unspecified injury of head, initial encounter (2) Syncope Syncope type: unspecified Qualified Code(s): R55 - Syncope and collapse
[2019-08-21] MEDS ORDERED: ACETAMINOPHEN 325 MG TAB PO PRN (01:20)
[2019-08-21] MEDS ORDERED: LORazepam 0.5 MG TAB PO PRN (01:20)
--- NOTE | 2019-08-21 02:36 | Billing Data ---
Date of Service August 21, 2019 Coding Level of Care Code 22030 Office/OBS Consult Lvl 3
[2019-08-21] MEDS ORDERED: lisinopriL 40 MG TAB PO SCH (09:00)
[2019-08-21] MEDS ORDERED: CITALOPRAM 20 MG TAB PO SCH (09:00)
[2019-08-21] MEDS ORDERED: FLECAINIDE ACETATE 100 MG TABLET PO SCH (09:00)
[2019-08-21 10:38] LABS: Basophils # (auto) 0.01 K/uL (0-0.2); Basophils % (auto) 0.1 %; Eosinophils # (auto) 0.07 K/uL (0-0.5); Hematocrit (blood only) 40.2 % (42-52); Hemoglobin 13.8 g/dL (14.0-18.0); Immature Granulocytes # (auto) 0.01 K/uL (0.00-0.02); Immature Granulocytes % (auto) 0.1 %; Lymphocytes # (auto) 1.27 K/uL (1.2-3.4); Lymphocytes % (auto) 18.4 %; Mean Corpuscular Hemoglobin 31.3 pg (25-34); Mean Corpuscular Hgb Conc 34.3 g/dL (32-36); Mean Corpuscular Volume 91.2 fL (80-100); Monocytes # (auto) 0.55 K/uL (0.11-0.59); Neutrophils # (auto) 4.99 K/uL (1.4-6.5); Neutrophils % (auto) 72.4 %; Platelet Count 211 K/uL (130-400); RDW Coefficient of Variation 13.1 % (11.5-14.5); Red Blood Count 4.41 M/uL (4.7-6.1)
[2019-08-21 11:16] LABS: BUN Creatinine Ratio 14.5 (10-20); Calcium 9.5 mg/dl (8.5-10.1); Creatinine Clr Calc Pharmacy 58.4 ml/min; Est GFR (African American) 64.7; Est GFR (Non-African American) 55.9; Potassium 5.1 mmol/L (3.5-5.1)
--- NOTE | 2019-08-21 11:19 | Electrocardiogram Report ---
Test Reason : Blood Pressure : / mmHG Vent. Rate : 076 BPM Atrial Rate : 076 BPM P-R Int : 202 ms QRS Dur : 100 ms QT Int : 376 ms P-R-T Axes : 013 -14 035 degrees QTc Int : 423 ms Normal sinus rhythm Nonspecific T wave abnormality Abnormal ECG When compared with ECG of 06-APR-2019 15:22, No significant change was found Confirmed by Hamzah Licea ([id number]) on 08/21/2019 11:19:14 AM Referred By: REFERRED SELF Confirmed By:Jim Licea
--- NOTE | 2019-08-21 13:26 | Cardiology Consultation ---
Date of Consultation August 21, 2019 Assessment & Plan (1) Syncope: Mechanism of his syncope appears to be dehydration and orthostasis. There is always a concern regarding any arrhythmia while on flecainide. However, the patient did have a prodrome, appears to have been mildly dehydrated at the time of presentation, has a history of likely mild dehydration in the setting of moderate alcohol use and arose quickly from a lying position. All this would suggest orthostasis as the mechanism. I do not believe he requires a further evaluation in this regard. I encouraged him to be wary of future episodes of dehydration. He was instructed to drink more water and liberalize his sodium in take. Alternatively, the use of sports drinks with electrolyte repletion may also be of value. (2) Premature atrial contractions: He has long history of symptomatic atrial ectopy. He appears to be doing very well on flecainide. It is unclear whether he requires 100 mg twice daily and would be nice to reduce his dose to the lowest effective dose. I asked him to reduce his flecainide 50 mg twice daily. We can reassess the efficacy when he follows up at his currently scheduled appointment in 2 weeks. History of Present Illness Reason for Consultation: Syncope Requesting Physician: Ramón Attending Physician: Sharifa Melgar MD History of Present Illness The patient is a 59-year-old gentleman known to me from the outpatient setting who was admitted last evening after suffering an episode of syncope. Patient states that in the late evening he had had several beers. He does not recall eating or drinking anything later that evening. He is quite tired and appears to been sleeping prior to getting up rapidly to go to the restroom. He states that he began feeling dizzy on his way to the bathroom and when he finally r eached the bathroom he lost consciousness briefly. He did suffer a very minor injury to his right forehead in the process. His heard the commotion and came to the bathroom. When he attempted to stand that point he again became quite dizzy and fell down. Subsequently, he rested for a while and felt well. However, over his 's concern he was brought to the emergency room for evaluation. He is felt to be mildly dehydrated and admitted for observation. Since admission the patient has felt well. He did not report any recurrent symptoms of dizziness or lightheadedness. He has been up and around his room and the bathroom today without symptoms. He has not noticed any palpitations today. He was able to eat breakfast and lunch without incident. In general he appears to be healthy individual who is active at work and home. He is able to perform moderate activity without limiting symptoms of dyspnea or chest discomfort. He has no orthopnea or paroxysmal nocturnal dyspnea. He has not had any palpitations recently. He does have a long history of some mild orthostatic type symptoms. For some time he has noted some mild dizziness when arising rapidly. He has not suffered syncope previously. Allergies Allergy/AdvReac Type Severity Reaction Status Date / Time Penicillins Allergy Severe Hives Verified 08/20/19 22:09 sulfamethoxazole Allergy Severe Fever, Verified 08/20/19 22:09 [From Bactrim] elevated LFT trimethoprim [From Bactrim] Allergy Severe Fever, Verified 08/20/19 22:09 elevated LFT Home Medications Home Medications Medication Instructions Recorded Confirmed Type indomethacin 25 mg PO TID PRN 06/24/18 08/20/19 History lorazepam 0.5 mg PO DAILY PRN 06/24/18 08/20/19 History metoprolol succinate 25 mg PO HS 06/24/18 08/20/19 History omeprazole 20 mg PO QAM 06/24/18 08/20/19 History citalopram 10 mg tablet 10 mg PO QAM #90 tab 10/17/18 08/20/19 Rx atorvastatin 20 mg PO HS 04/06/19 08/20/19 History lisinopril 40 mg PO QAM 04/06/19 08/20/19 History flecainide 100 mg tablet 100 mg PO Q12H #180 tab 08/18/19 08/20/19 Rx Patient History Medical History PHILIPPE (acute kidney injury) GERD (gastroesophageal reflux disease) (Inactive) Hypocalcemia (Inactive) Syncope (Inactive) Surgical History History of colonoscopy History of wisdom tooth extraction Status post LASIK surgery of both eyes Family History Mother Family history of reaction to anesthesia nausea/vomiting Father Prostate cancer Diabetes Hx of CABG Ischemic heart disease Uncle Colorectal cancer Brother Hypertension Denies family history of Ovarian cancer Breast cancer Lung cancer Social History Preferred Language: Setswana Communication Ability: Effective Visual Impairment: No Limitations Hearing Ability: Normal Pipeline Integrity Engineer Required: No Beliefs That Will Affect Care: None Current Living Situation: Spouse Other Information That Helps Us Care for You: No Feels Safe at Home: Yes Safety Concerns: Feels Safe At This Time Smoking Status: Never smoker Tobacco Type: smokeless tobacco ; Do You Dip or Chew Tobacco: Yes ; Second Hand Exposure: No ; Tobacco Cessation Education Requested by Patient: No Hx Alcohol Use: Yes Alcohol type: beer Hx Substance Use: No Childhood Exposure to Second-Hand Smoke: No Diet Comment: regular caffeine: Yes during the past year weight has: remained stable Dental Care, Regularly: Yes Physical Activity Frequency: Daily Seatbelt Use: always Sunscreen Use: Yes Review of Systems Review of Systems: All systems reviewed & are unremarkable except as noted in HPI & below Some upper respiratory congestion recently. No fevers or chills. No breathing difficulty, no cough. He Physical Exam Physical Exam: The patient is alert and oriented. Mood and affect appeared normal. He answered all questions appropriately. HEENT: Pupils are equal and reactive to light and accommodation. Extraocular movements are intact. The sclerae are anicteric. Neuro: Cranial nerves intact Neck: Patient's neck is supple. He has palpable carotid pulses bilaterally without bruits on auscultation. There is no evidence of jugular venous distention. The thyroid is not enlarged. Lungs: Clear to auscultation bilaterally. He has good air movement without use of accessory muscles. No rales wheezes or rhonchi. Cardiac: Heart demonstrates a regular rate and rhythm. Normal S1 and S2. No murmurs on examination. Pulses: The patient has palpable radial pulses bilaterally that are equal in intensity Extremities: There was no evidence of hypoperfusion. There is no cyanosis or clubbing. There is no edema. Skin: I did not appreciate any rashes on examination today. Results & Data ([place]) Vital Signs (Past 12 Hours) Vital Signs Temp Pulse Pulse Resp BP Pulse Ox 08/21/19 11:31 37.2 C 74 18 127/81 95 08/21/19 08:00 75 08/21/19 07:47 36.9 C 70 20 122/81 95 08/21/19 04:04 36.7 C 77 18 128/80 95 08/21/19 03:32 77 Laboratory Results Abnormal Lab Results 08/20/19 08/20/19 08/20/19 21:12 21:12 21:12 WBC 6.29 RBC 4.33 L Hgb 13.7 L Hct 39.1 L MCV 90.3 MCH 31.6 MCHC 35.0 RDW Std Deviation 41.9 RDW Coeff of Jennifer 12.7 Plt Count 209 MPV 11.6 H Immature Gran % (Auto) 0.2 Neut % (Auto) 51.4 Lymph % (Auto) 38.2 [place] % (Auto) 8.4 Eos % (Auto) 1.6 Baso % (Auto) 0.2 Immature Gran # (Auto) 0.01 Neut # (Auto) 3.24 Lymph # (Auto) 2.40 [place] # (Auto) 0.53 Eos # (Auto) 0.10 Baso # (Auto) 0.01 PT 10.7 INR 1.0 Sodium 134 L Potassium 3.5 Chloride 99 Carbon Dioxide 26 Anion Gap 9.0 BUN 23 H Creatinine 1.68 H Est Cr Clr Drug Dosing 48.9 Est GFR ( Amer) 51.5 Est GFR (Non-Af Amer) 44.4 BUN/Creatinine Ratio 13.4 Glucose 104 H Calcium 8.7 Magnesium 1.7 L Total Bilirubin 0.2 AST 33 ALT 62 Alkaline Phosphatase 95 Troponin I < 0.015 Total Protein 7.0 Albumin 3.5 Globulin 3.5 Albumin/Globulin Ratio 1.0 TSH 2.670 08/21/19 08/21/19 10:31 10:31 WBC 6.90 RBC 4.41 L Hgb 13.8 L Hct 40.2 L MCV 91.2 MCH 31.3 MCHC 34.3 RDW Std Deviation 44.0 RDW Coeff of Jennifer 13.1 Plt Count 211 MPV 11.0 H Immature Gran % (Auto) 0.1 Neut % (Auto) 72.4 Lymph % (Auto) 18.4 [place] % (Auto) 8.0 Eos % (Auto) 1.0 Baso % (Auto) 0.1 Immature Gran # (Auto) 0.01 Neut # (Auto) 4.99 Lymph # (Auto) 1.27 [place] # (Auto) 0.55 Eos # (Auto) 0.07 Baso # (Auto) 0.01 PT INR Sodium 138 Potassium 5.1 D Chloride 104 Carbon Dioxide 29 Anion Gap 5.0 BUN 20 H Creatinine 1.39 Est Cr Clr Drug Dosing 58.4 Est GFR ( Amer) 64.7 Est GFR (Non-Af Amer) 55.9 BUN/Creatinine Ratio 14.5 Glucose 106 H Calcium 9.5 Magnesium 2.0 Total Bilirubin AST ALT Alkaline Phosphatase Troponin I Total Protein Albumin Globulin Albumin/Globulin Ratio TSH Diagnostic Findings Chest x-ray and head CT obtained at the time of admission did not reveal any abnormalities Echocardiogram obtained in 2018 did not reveal any valvular abnormalities. Normal LV function and chamber dimension. ECG Additional Comments: Obtained at the time of admission revealed a borderline first-degree AV block and nonspecific ST and T-wave changes PG Care Time/CCT Total # of Minutes Spent Total Time Spent with Patient: Total time spent is greater than 50% in coordination of care (as documented) at patient's floor/unit and/or counseling p atient: Coding Level of Care Code 34846 Office/OBS Consult Lvl 4 Diagnoses Syncope R55 Syncope type: unspecified Premature atrial contractions I49.1 (1) Syncope Syncope type: unspecified Qualified Code(s): R55 - Syncope and collapse
--- NOTE | 2019-08-21 14:10 | Discharge Summary ---
Date of Service August 21, 2019 Admission HPI Per Admitting Provider Hilton is a 59-year-old male with a past medical history of irregular heartbeat, colon adenoma, and anxiety who presents with an episode of syncope. Hilton reports he was at home in his otherwise normal state of health when he was fatigued after working on putting any heat pump in the house and laid down at around 8 PM to take a nap. He reports he woke up and stood up to go to the bathroom, walked about 20 steps, and then felt lightheaded and dizzy and fell and hit his head on a rail in the bathroom. His heard him and came to assist him, he reports he stood up and then again became very lightheaded and s lumped on his who lowered him to the ground and called 911. He reports that he was not out for very long but does not remember falling either time. After the second time he was able to get up and went to lie down in bed and his symptoms resolved. He reports that after laying down in bed he had a short episode of cold sweats, and then was in his normal state of health by the time EMS arrived. He reports he has had intermittent episodes of lightheadedness when standing in the past for which she has had his flecainide and metoprolol adjusted by his outpatient sponsorship manager. he is followed by Dr. Licea. He is on flecainide and metoprolol for a heartbeat irregularity which he reports is not A. fib or a flutter and does not require anticoagulation, and which has been completely resolved with flecainide and metoprolol. He reports that he has a 6 beer per day intake about 4 to 5 days/week, and notes that while he had had several beers the day of his symptoms he was not drunk at the time of his fall. He reports that he has noticed his tongue was dry and he has been thirsty in the evening. He denies preceding chest pain, chest pressure, palpitations, shortness of breath, fever, chills, sweats, urinary changes, focal neurologic symptoms, vision change, and weakness. Past medical history: Reviewed, see EMR Past surgical history: Reviewed in EMR Medications: Reviewed with patient, updated in EMR. Patient has not taken his medications yet tonight, but was scheduled to get them by ED provider Medication allergies: Hives to penicillin, reaction to Bactrim Social: Denies tobacco use, denies recreational drug use. Alcohol consumption as noted in HPI. He lives at home with his who would be his surrogate decision maker if needed. CODE STATUS: Full code Principal Diagnosis Orthostatic hypotension, dehydration, Acute kidney injury Discharge Exam Constitutional WD/WN, vitals as above Eyes + anicteric sclerae ENMT external ear and nose normal, oropharynx normal Neck trachea midline, no thyromegaly Respiratory normal respiratory effort, lungs clear to auscultation Cardiovascular RRR, no murmur, no edema Chest (Breasts) Chest: normal inspection of chest Gastrointestinal (Abdomen) normal bowel sounds, soft, nontender, no hepatosplenomegaly Musculoskeletal Extremities: extremities normal to inspection; no cyanosis and no clubbing Skin no rashes, warm and dry Neurologic moves all extremities and awake; no focal motor deficits Psychiatric A+Ox3, euthymic affect Lymphatic no lymphedema Discharge Data Allergies Allergy/AdvReac Type Severity Reaction Status Date / Time Penicillins Allergy Severe Hives Verified 08/20/19 22:09 sulfamethoxazole Allergy Severe Fever, Verified 08/20/19 22:09 [From Bactrim] elevated LFT trimethoprim [From Bactrim] Allergy Severe Fever, Verified 08/20/19 22:09 elevated LFT Consultations 08/20/19 22:56 ED Decision to Admit Stat 08/21/19 11:59 Consult Cardiology Routine Ordered Studies 08/20/19 21:45 CT head/brain wo con Stat CXR Hospital Course (1) Syncope: Hilton is a 59-year-old male with a past medical history of irregular heartbeat, colon adenoma, and anxiety who presents with an episode of syncope. Syncope 2 episodes of syncope within approximately 1 minute after standing to use the restroom.He has a history of orthostasis on flecainide and metoprolol, and reports that he had several beers and was thirsty working in the yard prior to this episode. No chest pain, chest pressure, palpitations or other cardiac symptoms prior to or after episode EKG normal sinus rhythm, troponin negative on admission, TSH normal, no arrhythmias on telemetry monitoring With PHILIPPE on admission, improved and all symptoms resolved with IVF hydration overnight Suspect patient had an episode of orthostatic syncope worsened by dehydration Stable for dc to home (2) PHILIPPE (acute kidney injury): Creatinine increased from baseline of 1.01.29---> 1.68 on admission Breaker Boss down to 1.3 on recheck after hydration ok to resume home lisinopril after discharge hydration encouraged and advised to cut down on amount of EtOH intake (3) Alcohol use: advised to cut down to no more than 3 drinks at one sitting (4) Closed head injury: no signs/symptoms of concussion (5) Multifocal atrial tachycardia: With a h/o MAT that was previously symptomatic Completely resolved with flecainide treatment Discussed his care with his primary Shell Mold Bonding Machine Operator, Dr. Licea--> advised to cut flecainide down to 50mg bid and f/u in office within 2 weeks to see if atrial tach becomes symptomatic again Appreciate Cardio consult Continue metoprolol as before (6) HTN (hypertension): Hypertension/HLD Held lisinopril for PHILIPPE but ok to resume Continue atorvastatin for HL (7) Anxiety: Anxiety Continue citalopram 10 mg daily DVT prophylaxis: SCDs Disposition: stable for dc to home Total Time Total Time Spent Total Time Spent (In Minutes): 40 min Total Time Includes: Examination of the Patient, Discharge Planning, Medication Reconciliation and Communication With Other Providers (Cardiology) Discharge Plan Discharge Items Patient Disposition: Home - Self-Care Reason For Visit: SYNCOPE Discharge Diagnosis: Syncope, Orthostatic hypotension, Acute kidney injury, dehydration Condition on Discharge: Good Activity: Resume your previous activity Non-emergency contact: Primary Care Provider and [employer] Bonding Machine Operator Call non-emergency contact if: you have any medication questions and your symptoms worsen Follow-up/Referrals: Jonah Khanna MD [Primary Care Provider] - (Please call Dr. Khanna's office to see if they want to see you for follow up in the next 2 weeks.) Jhoan Licea MD [Physician] - (Please keep your scheduled appointment in 2 weeks.) Diet: Regular Addtl Attending Provider Instructions: Please try to stay well hydrated and cut down on your alcohol consumption. It is important to not get up from a lying or seated position too quickly. Dr. Licea would like you to cut your flecainide dose to 50mg twice a day and keep your follow up appointment with him as scheduled in 2 weeks. Pending Studies at Discharge: No Stand-Alone Forms: My [facility] Medications and DC Order Prescriptions: Continued citalopram 10 mg tablet 10 mg PO QAM Qty: 90 RF: 3 atorvastatin 20 mg tablet 20 mg PO HS RF: 0 lisinopril 40 mg tablet 40 mg PO QAM RF: 0 lorazepam 0.5 mg Tablet 0.5 mg PO DAILY PRN (Reason: Anxiety) RF: 0 indomethacin 25 mg Capsule 25 mg PO TID PRN (Reason: Gout Flare Up) RF: 0 metoprolol succinate 25 mg Tablet Extended Release 24 Hr 25 mg PO HS RF: 0 omeprazole 20 mg Tablet,Delayed Release (Dr/Ec) 20 mg PO QAM RF: 0 Changed flecainide 100 mg tablet 50 mg PO Q12H Qty: 180 RF: 3 Discharge Orders: Discharge Order (Routine); Ordered 08/21/19 Ordered By: Sharifa Melgar Admission Data Admit Date/Time: 08/21/19 00:20 Attending Provider: Sharifa Melgra Admit Provider: Jonah Bess Primary Care Provider: Jonah Khanna Other Providers: Jhoan Licea Other Interventions: Discharge Summary Assessment (RN) Last Done: 08/21/19 14:20 DC Date/Time DO NOT enter until pt leaves facility: 08/21/19 14:55 Coding Level of Care Code D/C Day Management >30 mins Diagnoses Syncope R55 Syncope type: unspecified PHILIPPE (acute kidney injury) N17.9 Alcohol use Z72.89 Closed head injury S09.90XA Encounter type: initial encounter Multifocal atrial tachycardia I47.1 HTN (hypertension) I10 Hypertension type: essential hypertension Anxiety F41.9
[2019-08-21] MEDS ORDERED: ATORVASTATIN 20 MG TAB PO SCH (21:00)
[2019-08-21] MEDS ORDERED: METOPROLOL SUCC 25MG EXT REL TAB PO SCH (21:00)
== END 2019-08-21 14:55 | disposition home or self-care (01) ==
LOC: 2W 21:21 → ED 21:21 → SUATTDRO 08-21 00:20 → 2W 08-21 00:38